=== PATIENT | male | born 1975 | race Hispanic/Latino ===

== ENCOUNTER 2017-05-02 06:09 | Day surgery (SDC) | payer BC ==
[2017-04-30 13:56] VITALS: BP 127/72
[2017-04-30 13:57] LABS: BASOPHILS % (AUTO) 0.6 % (0.0-5.0); EOSINOPHILS % (AUTO) 2.7 % (0.0-8.0); HEMATOCRIT 40.3 % (42-54); MEAN CORPUSCULAR HEMOGLOBIN 30.4 pg (27.0-33.0); MEAN CORPUSCULAR HGB CONC 34.6 g/dL (32.0-36.0); MEAN CORPUSCULAR VOLUME 87.8 fL (79-99); MONOCYTES % (AUTO) 6.7 % (3.0-13.0); PLATELET COUNT (AUTO) 271 K/uL (130-400); RED BLOOD CELL COUNT(AUTO) 4.59 MIL/uL (4.50-6.20); RED CELL DISTRIBUTION WIDTH 12.8 % (11.0-15.5); WHITE BLOOD COUNT (AUTO) 7.9 K/uL (4.8-10.8)
[2017-04-30 14:19] LABS: CREATININE 0.9 mg/dL (0.5-1.5); POTASSIUM 3.9 mmol/L (3.5-5.1)
[2017-04-30 14:21] LABS: INR 0.97 (0.85-1.15); PARTIAL THROMBOPLASTIN TIME 27.6 SEC (26.3-35.5); PROTHROMBIN TIME 10.2 SEC (9.6-11.6)
[~2017-05-02] VITALS: Ht 167.6 cm; Wt 72.6 kg
[2017-05-02] VITALS (9 sets, daily range): BP systolic 98–108; BP diastolic 61–70
[~2017-05-02 06:09] MED LIST: LEVE750T10 PO; PHEN100C9 PO
[2017-05-02] MEDS ORDERED: SODIUM CHLORIDE 0.9% 1000ML 1,000 ML IV ONE (06:34)
[2017-05-02] MEDS ORDERED: LIDOCAINE HCL 2% 20ML ONE ×2 (10:24→10:26)
[2017-05-02] MEDS ORDERED: HEPARIN SODIUM 1000UNIT/ML 10ML VIAL ONE (10:24)
[2017-05-02] MEDS ORDERED: MEPERIDINE-PF 25 MG/ML SYG ONE ×5 (10:36→11:45)
[2017-05-02] MEDS ORDERED: MIDAZOLAM HCL 1 MG/ML 2ML VIAL ONE ×2 (10:37→11:21)
[2017-05-02] MEDS ORDERED: ISOPROTERENOL HCL 0.2 MG/ML AMP/VIAL/BAG ONE (11:54)
[2017-05-02] MEDS ORDERED: VERA180T8 PO (13:14)
== END 2017-05-02 16:10 | disposition home or self-care (01) ==
LOC: DAH 06:09
PROVIDERS: ATTEND Internal Medicine Cardiovascular Disease
DX: I47.1 Supraventricular tachycardia (principal); G40.909 Epilepsy, unspecified, not intractable, without status epilepticus
CPT/HCPCS: 36415; 80048; 85025; 85610; 85730; 93620; 93621; 93623; 99156; 99157; A4606; A4649; C1730 ×2; C1731; C1894 ×4; J1644; J2175 ×5; J2250 ×2; J3490 ×3; J7030; 99152; 99153

== ENCOUNTER 2017-09-30 02:53 | Emergency (ER) | payer BC ==
[~2017-09-30 02:53] MED LIST changes: +VERA180T8 PO
[2017-09-30] MEDS ORDERED: SODIUM CHLORIDE 0.9% 100 ML IV ONE (03:14)
[2017-09-30] MEDS ORDERED: LEVETIRACETAM 500 MG/5 ML SD VIAL IV ONE (03:30)
[2017-09-30 03:38] LABS: APPEARANCE,URINE Clear (CLEAR); BASOPHILS % (AUTO) 0.8 % (0.0-5.0); BILIRUBIN,URINE Negative (NEGATIVE); COLOR,URINE Yellow (YELLOW); GLUCOSE, URINE (UA) Negative (NEGATIVE); HEMATOCRIT 41.3 % (42-54); KETONES,URINE Negative (NEGATIVE); LEUKOCYTE ESTERASE ,URINE Negative (NEGATIVE); LYMPHOCYTES % (AUTO) 29.7 % (21.0-51.0); MEAN CORPUSCULAR HEMOGLOBIN 30.9 pg (27.0-33.0); MEAN CORPUSCULAR HGB CONC 35.4 g/dL (32.0-36.0); MEAN CORPUSCULAR VOLUME 87.3 fL (79-99); MONOCYTES % (AUTO) 7.9 % (3.0-13.0); NEUTROPHILS % (AUTO) 60.6 % (40.0-77.0); NITRATE,URINE Negative (NEGATIVE); NUCLEATED RED BLOOD CELLS 0.1 % (0.0-0.19); OCCULT BLOOD,URINE Negative (NEGATIVE); PLATELET COUNT (AUTO) 305 K/uL (130-400); PROTEIN,URINE Negative (NEGATIVE); RED BLOOD CELL COUNT(AUTO) 4.74 MIL/uL (4.50-6.20); RED CELL DISTRIBUTION WIDTH 13.2 % (11.0-15.5); UROBILINOGEN,URINE 0.2 mg/dL (0.2-1.0); WHITE BLOOD COUNT (AUTO) 6.7 K/uL (4.8-10.8)
[2017-09-30 03:58] LABS: POTASSIUM 3.1 mmol/L (3.5-5.1)
[2017-09-30 04:02] LABS: BILIRUBIN,TOTAL 0.2 mg/dL (0.2-1.0); TOTAL PROTEIN, SERUM 7.7 g/dL (6.0-8.3)
[2017-09-30] MEDS ORDERED: POTASSIUM CHLORIDE 10% ELIXIR 20 MEQ/15 ML UDCUP ONE (04:04)
== END 2017-09-30 04:16 | disposition home or self-care (01) ==
LOC: EDH 02:53
DX: G40.909 Epilepsy, unspecified, not intractable, without status epilepticus (principal); Z79.899 Other long term (current) drug therapy
CPT/HCPCS: 36415; 80053; 81003; 85025; 96365; 99284; J1953; 96374

== ENCOUNTER 2022-10-14 10:34 | Emergency (ER) | payer BC ==
[~2022-10-14] VITALS: Ht 167.6 cm; Wt 70.3 kg
[~2022-10-14 10:34] MED LIST changes: +VERA180T61 PO; -VERA180T8 PO
[2022-10-14 11:12] LABS: INR 0.93 (0.85-1.15)
[2022-10-14 11:14] LABS: PARTIAL THROMBOPLASTIN TIME 29.5 SEC (26.3-35.5)
[2022-10-14 11:20] LABS: BASOPHILS % (AUTO) 0.6 % (0.0-5.0); HEMATOCRIT 38.9 % (42-54); LYMPHOCYTES % (AUTO) 23.4 % (21.0-51.0); MEAN CORPUSCULAR HGB CONC 33.7 g/dL (32.0-36.0); MEAN CORPUSCULAR VOLUME 92.2 fL (79-99); MONOCYTES % (AUTO) 9.8 % (3.0-13.0); PLATELET COUNT (AUTO) 211 K/uL (130-400); RED BLOOD CELL COUNT(AUTO) 4.22 MIL/uL (4.50-6.20); RED CELL DISTRIBUTION WIDTH 12.4 % (11.0-15.5)
[2022-10-14 11:26] LABS: ALBUMIN 3.9 g/dL (3.5-5.0); CREATININE 0.9 mg/dL (0.5-1.5); POTASSIUM 3.7 mmol/L (3.5-5.1); TOTAL PROTEIN, SERUM 7.6 g/dL (6.0-8.3)
[2022-10-14] MEDS ORDERED: LEVETIRACETAM 500 MG/5 ML SD VIAL IV SCH (11:30)
[2022-10-14] MEDS ORDERED: LEVE-43 PO (12:06)
[2022-10-14 12:29] VITALS: BP 113/77
== END 2022-10-14 12:56 | disposition home or self-care (01) ==
LOC: EDH 10:34
DX: R56.9 Unspecified convulsions (principal); Z79.899 Other long term (current) drug therapy
CPT/HCPCS: 99284; 96374; 70450; 84484; 80053; 85025; 85610; 85730; 82948; 36415; 93005; J1953